=== PATIENT | female | born 1950 | race Native Hawaiian/Other Pacific Islander ===

== ENCOUNTER → 2022-01-17 13:21 | Outpatient (CLI) | payer OTHER, SELFPAY ==
--- NOTE | 2022-01-18 14:26 | PM.TREADMILL ---
Cardiac Stress Test Report Referral & Results Date Patient Seen: 01/18/22 Time Patient Seen: 14:27 Requesting provider: Trev Dixon Indication: Dyspnea with exertion Rest ECG: Unremarkable Procedure Note: Today following both written and verbal informed consent the patient was exercised according to a standard Mahin protocol patient went for a total of 5 minutes 15 seconds achieving a maximum heart rate of 132 maximum systolic blood pressure of 184. This is approximately 7.0 METS. Exercise was terminated at this point because of targets were met and patient unable to continue Patient was also given Cardiolite through a previously started Hep-Lock IV by the diagnostic imaging staff approximately 1 minute prior to the cessation of exercise. There are no ST-T segment changes identified Normal heart rate and blood pressure response to exercise Function aerobic impairment rates about-10% on the sedentary scale Patient's oxygen saturation was 95% at peak exercise on room air Impression: Patient without evidence of ischemia based on ECG criteria. Please see perfusion imaging report as well. No evidence of primary pulmonary disease either based on oxygen saturation with exercise or clinical picture while exercising Please note: Actual ECG tracings can be found in the PACS system.
--- NOTE | 2022-01-18 18:22 | DI.NM.S_ITS ---
DATE OF SERVICE: 01/17/2022 PROCEDURE PERFORMED: Exercise treadmill stress and rest myocardial perfusion study with gating to assess ejection fraction and regional wall motion. ORDERING PROVIDER: Dr. Trev Dixon. INDICATIONS: The patient is a morbidly obese 71-year-old hypertensive, hyperlipidemic female with exertional dyspnea. CARDIAC STRESS: The patient was able to exercise for a total of 5 minutes, 15 seconds on a standard Mahin protocol, suggesting mildly reduced exercise capacity with an YONATHAN of +5%. She had a normal heart rate and blood pressure response to exercise, achieving a maximum heart rate of 132 BPM (88% of her predicted maximum). She had no apparent chest discomfort and her oxygen saturation apparently remained normal. Her resting ECG shows normal ST segments and there are no significant ST-segment shifts or arrhythmias with stress. At 4 minutes, 12 seconds of exercise at a heart rate of 126 BPM, 25.5 millicuries of technetium-99m Myoview was injected and she was imaged 10 minutes later using a gated SPECT acquisition protocol. The day prior, she was injected with 26.0 millicuries of technetium-99m Myoview while at rest and was imaged 20 minutes later, again using a gated SPECT acquisition protocol. FINDINGS: 1. Raw data: There are marked breast shadows producing significant attenuation across the cardiac image. Lung/heart ratio is normal at 0.37 with a normal TID ratio of 1.06. 2. Quantitated gated SPECT: Post-stress ejection fraction is estimated at 76% without any focal wall motion abnormality and specifically the distal anterior apical wall appears to have normal contractility. The resting ejection fraction is estimated at 78% with a similar contraction pattern and a normal resting end-diastolic volume of 81 mL. 3. Myocardial perfusion imaging: Post-stress supine images reveal a fairly normal myocardial perfusion study except for a very subtle defect in the very distal anteroseptal segment that likely reflects breast attenuation artifact although remains persistent on the prone images. The resting images are of somewhat reduced quality but show a similar perfusion pattern without any clear evidence of improvement. IMPRESSION: 1. Probable normal myocardial perfusion study. 2. Small, subtle, fixed perfusion defect in the distal anteroseptum and apex that likely reflects breast attenuation artifact. While a previous nontransmural infarction cannot be entirely excluded, given the normal contractility in this area, this most likely reflects breast attenuation artifact. There is no evidence for any myocardial ischemia. 3. Normal left ventricular systolic function without any focal wall motion abnormality. 4. Mildly reduced exercise capacity without angina or ECG evidence of ischemia. Bre Jon - [facility]/selam/jennifer doc#: [id number]/job#: [id number] dd: 01/18/2022 16:47:00 dt: 01/18/2022 17:41:00 DICTATING /COPIES TO: Sahil Mata MD; Trev Dixon, MAGY MNE: PREET;
== END ==
PROVIDERS: PCP Family Medicine; Referring Provider Family Medicine; Visit Provider Family Medicine
DX: E78.00 Pure hypercholesterolemia, unspecified (principal); I10 Essential (primary) hypertension; R06.02 Shortness of breath; R06.00 Dyspnea, unspecified
CPT/HCPCS: 78452; 93016; 93017; 93018; A9502

== ENCOUNTER → 2022-02-01 06:59 | Outpatient (CLI) | payer OTHER, SELFPAY ==
[2022-02-01 08:09] LABS: Add Manual Diff / Slide Review NO; Basophils Absolute Auto 0 /uL (0-100); Eosinophils Absolute Auto 200 /uL (0-450); Eosinophils Percent Auto 5.2 % (2-4); Hematocrit 39.8 % (36-46); Hemoglobin 13.5 g/dL (12.0-16.0); Lymphocytes Absolute Auto 1800 /uL (1100-4500); Lymphocytes Percent Auto 48.6 % (25-40); Mean Corpuscular HGB Conc 33.9 % (30-36); Mean Corpuscular Volume 88.4 fL (80-100); Monocytes Absolute Auto 400 /uL (0-900); Monocytes Percent Auto 10.6 % (3-14); Neutrophils Absolute Auto 1300 /uL (1500-7000); Neutrophils Percent Auto 34.6 % (50-75); Platelet Count 207 X10^3/uL (150-400); Red Cell Distribution Width 13.9 % (11.6-14.8); White Blood Cell Count 3.7 X10^3/uL (4.5-11.0)
[2022-02-01 08:31] LABS: Alanine Aminotransferase 22 IU/L (<35); Albumin 3.8 g/dL (3.5-5.0); Albumin Globulin Ratio 1.3 (1.0-2.8); Alkaline Phosphatase 61 U/L (38-126); Aspartate Aminotransferase 28 IU/L (14-36); BUN Creatinine Ratio 16.2 (6-22); Bilirubin Total 0.6 mg/dL (0.2-1.3); Blood Urea Nitrogen 16 mg/dL (7-17); Carbon Dioxide 27 mmol/L (22-32); Chloride 105 mmol/L (98-107); Cholesterol 214 mg/dL (140-199); Estimated Glomerular Filt Rate > 60 mL/min (>60); Globulin 2.9 g/dL (1.7-4.1); Glucose 89 mg/dL (80-110); HDL Cholesterol 61 mg/dL (40-60); HEMOLYSIS < 15 (0-50); LDL Cholesterol Calculated 133 mg/dL (<100); Potassium 4.5 mmol/L (3.4-5.1); Sodium 137 mmol/L (137-145); Total Protein 6.7 g/dL (6.3-8.2); Triglycerides 101 mg/dL (35-150)
== END ==
PROVIDERS: PCP Family Medicine; Referring Provider Family Medicine; Visit Provider Family Medicine
DX: D64.9 Anemia, unspecified (principal); E78.00 Pure hypercholesterolemia, unspecified; I10 Essential (primary) hypertension
CPT/HCPCS: 36415; 80053; 80061; 85025

== ENCOUNTER → 2022-07-20 08:18 | Outpatient (CLI) | payer OTHER, SELFPAY ==
[2022-07-20 09:17] LABS: Add Manual Diff / Slide Review NO; Basophils Absolute Auto 0 /uL (0-100); Basophils Percent Auto 0.9 % (0-2); Eosinophils Absolute Auto 200 /uL (0-450); Eosinophils Percent Auto 5.5 % (2-4); Hematocrit 39.5 % (36-46); Hemoglobin 13.3 g/dL (12.0-16.0); Lymphocytes Absolute Auto 1600 /uL (1100-4500); Lymphocytes Percent Auto 43.3 % (25-40); Mean Corpuscular HGB Conc 33.6 % (30-36); Mean Corpuscular Hemoglobin 29.5 PG (26-34); Mean Corpuscular Volume 87.9 fL (80-100); Monocytes Absolute Auto 500 /uL (0-900); Monocytes Percent Auto 12.1 % (3-14); Neutrophils Absolute Auto 1500 /uL (1500-7000); Neutrophils Percent Auto 38.2 % (50-75); Platelet Count 208 X10^3/uL (150-400); Red Cell Distribution Width 14.2 % (11.6-14.8); White Blood Cell Count 3.8 X10^3/uL (4.5-11.0)
[2022-07-20 09:36] LABS: Cholesterol 212 mg/dL (140-199); HDL Cholesterol 60 mg/dL (40-60); LDL Cholesterol Calculated 131 mg/dL (<100); Triglycerides 105 mg/dL (35-150)
== END ==
PROVIDERS: PCP Family Medicine; Referring Provider Family Medicine; Visit Provider Family Medicine
DX: D64.9 Anemia, unspecified (principal); E78.00 Pure hypercholesterolemia, unspecified; I10 Essential (primary) hypertension
CPT/HCPCS: 36415; 80061; 85025

== ENCOUNTER → 2023-07-26 08:36 | Outpatient (CLI) | payer OTHER, MEDICARE, SELFPAY ==
[2023-07-26 09:14] LABS: Add Manual Diff / Slide Review NO; Basophils Absolute Auto 0 /uL (0-100); Eosinophils Absolute Auto 100 /uL (0-450); Eosinophils Percent Auto 3.9 % (2-4); Hematocrit 41.4 % (36-46); Hemoglobin 13.9 g/dL (12.0-16.0); Lymphocytes Absolute Auto 1600 /uL (1100-4500); Lymphocytes Percent Auto 41.9 % (25-40); Mean Corpuscular HGB Conc 33.6 % (30-36); Mean Corpuscular Hemoglobin 29.2 PG (26-34); Mean Corpuscular Volume 86.8 fL (80-100); Monocytes Absolute Auto 500 /uL (0-900); Monocytes Percent Auto 12.5 % (3-14); Neutrophils Absolute Auto 1500 /uL (1500-7000); Neutrophils Percent Auto 40.7 % (50-75); Platelet Count 250 X10^3/uL (150-400); Red Blood Cell Count 4.77 X10^6/uL (4.0-5.2); Red Cell Distribution Width 14.2 % (11.6-14.8); White Blood Cell Count 3.7 X10^3/uL (4.5-11.0)
[2023-07-26 09:27] LABS: Alanine Aminotransferase 20 IU/L (<35); Albumin Globulin Ratio 1.3 (1.0-2.8); Alkaline Phosphatase 59 U/L (38-126); Aspartate Aminotransferase 28 IU/L (14-36); BUN Creatinine Ratio 17.2 (6-22); Bilirubin Total 0.4 mg/dL (0.2-1.3); Blood Urea Nitrogen 15 mg/dL (7-17); Calcium 9.5 mg/dL (8.4-10.2); Carbon Dioxide 30 mmol/L (22-32); Chloride 104 mmol/L (98-107); Cholesterol 222 mg/dL (140-199); Estimated Glomerular Filt Rate > 60 mL/min (>60); Globulin 3.1 g/dL (1.7-4.1); Glucose 95 mg/dL (80-110); HDL Cholesterol 58 mg/dL (40-60); HEMOLYSIS < 15 (0-50); LDL Cholesterol Calculated 141 mg/dL (<100); Potassium 4.2 mmol/L (3.4-5.1); Sodium 138 mmol/L (137-145); Total Protein 7.1 g/dL (6.3-8.2); Triglycerides 115 mg/dL (35-150)
[2023-07-26 09:57] LABS: TSH w/ Reflex to FT4 4.49 uIU/mL (0.47-4.68)
== END ==
PROVIDERS: PCP Family Medicine; Referring Provider Family Medicine; Visit Provider Family Medicine
DX: I10 Essential (primary) hypertension (principal); K59.09 Other constipation; E78.00 Pure hypercholesterolemia, unspecified
CPT/HCPCS: 36415; 80053; 80061; 84443; 85025

== ENCOUNTER → 2024-03-23 08:32 | Outpatient (CLI) | payer OTHER, MEDICARE, SELFPAY ==
[2024-03-23 09:56] LABS: Add Manual Diff / Slide Review NO; Basophils Absolute Auto 0 /uL (0-100); Basophils Percent Auto 1.2 % (0-2); Eosinophils Absolute Auto 200 /uL (0-450); Eosinophils Percent Auto 5.1 % (2-4); Hematocrit 41.2 % (36-46); Hemoglobin 13.8 g/dL (12.0-16.0); Lymphocytes Absolute Auto 1300 /uL (1100-4500); Lymphocytes Percent Auto 39.8 % (25-40); Mean Corpuscular HGB Conc 33.4 % (30-36); Mean Corpuscular Hemoglobin 29.7 PG (26-34); Mean Corpuscular Volume 88.9 fL (80-100); Monocytes Absolute Auto 400 /uL (0-900); Monocytes Percent Auto 12.6 % (3-14); Neutrophils Absolute Auto 1400 /uL (1500-7000); Neutrophils Percent Auto 41.3 % (50-75); Platelet Count 218 X10^3/uL (150-400); Red Blood Cell Count 4.63 X10^6/uL (4.0-5.2); Red Cell Distribution Width 13.9 % (11.6-14.8); White Blood Cell Count 3.3 X10^3/uL (4.5-11.0)
[2024-03-23 10:01] LABS: Hemoglobin A1C% w Est Avg Glu 5.2 % (4.0-6.0)
[2024-03-23 10:24] LABS: Alanine Aminotransferase 17 IU/L (<35); Albumin Globulin Ratio 1.3 (1.0-2.8); Alkaline Phosphatase 59 U/L (38-126); Aspartate Aminotransferase 27 IU/L (14-36); BUN Creatinine Ratio 19.6 (6-22); Bilirubin Total 0.5 mg/dL (0.2-1.3); Blood Urea Nitrogen 18 mg/dL (7-17); Calcium 8.9 mg/dL (8.4-10.2); Carbon Dioxide 29 mmol/L (22-32); Chloride 106 mmol/L (98-107); Cholesterol 224 mg/dL (140-199); Estimated Glomerular Filt Rate > 60 mL/min (>60); Glucose 90 mg/dL (80-110); HDL Cholesterol 61 mg/dL (40-60); HEMOLYSIS < 15 (0-50); LDL Cholesterol Calculated 145 mg/dL (<100); Potassium 4.6 mmol/L (3.4-5.1); Sodium 139 mmol/L (137-145); Triglycerides 88 mg/dL (35-150)
[2024-03-23 10:53] LABS: TSH w/ Reflex to FT4 3.26 uIU/mL (0.47-4.68)
[2024-03-25 03:36] LABS: Apolipoprotein B 99 mg/dL (<90)
== END ==
PROVIDERS: PCP Family Medicine; Referring Provider Family Medicine; Visit Provider Family Medicine
DX: Z00.00 Encounter for general adult medical examination without abnormal findings (principal)
CPT/HCPCS: 36415; 80053; 80061; 82172; 83036; 83695; 84443; 85025

== ENCOUNTER → 2024-03-25 15:36 | Outpatient (CLI) | payer OTHER, MEDICARE, SELFPAY ==
[2024-03-25 16:31] LABS: C-Reactive Protein Quant < 0.5 mg/dL (<1.0)
[2024-03-25 16:44] LABS: Erythrocyte Sedimentation Rate 8 MM/HR (0-20)
== END ==
PROVIDERS: PCP Family Medicine; Referring Provider Family Medicine; Visit Provider Family Medicine
DX: G43.909 Migraine, unspecified, not intractable, without status migrainosus (principal); M54.50 Low back pain, unspecified; I73.00 Raynaud's syndrome without gangrene
CPT/HCPCS: 36415; 85651; 86038; 86140

== ENCOUNTER → 2025-03-04 06:56 | Outpatient (CLI) | payer OTHER, MEDICARE, SELFPAY ==
--- NOTE | 2025-03-04 06:59 | DI.US.S_ITS ---
PROCEDURE: US ABDOMEN LIMITED INDICATIONS: RIGHT UPPER QUADRANT PAIN TECHNIQUE: Real-time scanning was performed of the abdominal and retroperitoneal organs, with image documentation. COMPARISON: None. FINDINGS: Liver: Liver measures 13 cm. Increased in echogenicity. Gallbladder: Filled with gallstones. A larger stone measuring 1 cm. No wall thickening. No pericholecystic edema. Negative sonographic Ramsey's sign. Biliary ducts: Intrahepatic bile ducts are non-dilated. Extrahepatic bile duct caliber measures 8 mm. Normal is 6-7 mm or less in diameter, or 10 mm or less post-cholecystectomy. Pancreas: Visualized portions of the pancreas are sonographically normal. Tail is not well seen. Miscellaneous: No free abdominal fluid. IMPRESSION: 1. Increased hepatic echogenicity most consistent with hepatic steatosis. Other forms of hepatocellular disease could have similar appearance. 2. No acute cholecystitis demonstrated. Gallbladder is filled with gallstones. Dictated by: Alexis Martinez M.D. on 03/04/2025 at 10:50 Approved by: Alexis Martinez M.D. on 03/04/2025 at 10:53
[2025-03-04 08:16] LABS: Add Manual Diff / Slide Review NO; Basophils Absolute Auto 0 /uL (0-100); Basophils Percent Auto 0.8 % (0-2); Eosinophils Absolute Auto 300 /uL (0-450); Eosinophils Percent Auto 7.1 % (2-4); Hematocrit 41.7 % (36-46); Hemoglobin 13.9 g/dL (12.0-16.0); Lymphocytes Absolute Auto 1400 /uL (1100-4500); Lymphocytes Percent Auto 38.7 % (25-40); Mean Corpuscular HGB Conc 33.4 % (30-36); Mean Corpuscular Hemoglobin 29.6 PG (26-34); Mean Corpuscular Volume 88.9 fL (80-100); Monocytes Absolute Auto 500 /uL (0-900); Monocytes Percent Auto 13.2 % (3-14); Neutrophils Absolute Auto 1400 /uL (1500-7000); Neutrophils Percent Auto 40.2 % (50-75); Platelet Count 223 X10^3/uL (150-400); Red Blood Cell Count 4.69 X10^6/uL (4.0-5.2); Red Cell Distribution Width 14.3 % (11.6-14.8); White Blood Cell Count 3.6 X10^3/uL (4.5-11.0)
[2025-03-04 08:18] LABS: Hemoglobin A1C% w Est Avg Glu 5.4 % (4.0-6.0)
[2025-03-04 08:39] LABS: Alanine Aminotransferase 18 IU/L (<35); Albumin Globulin Ratio 1.5 (1.0-2.8); Alkaline Phosphatase 64 U/L (38-126); Aspartate Aminotransferase 27 IU/L (14-36); BUN Creatinine Ratio 20.4 (6-22); Bilirubin Total 0.5 mg/dL (0.2-1.3); Blood Urea Nitrogen 20 mg/dL (7-17); Calcium 9.3 mg/dL (8.4-10.2); Carbon Dioxide 27 mmol/L (22-32); Chloride 103 mmol/L (98-107); Cholesterol 228 mg/dL (140-199); Estimated Glomerular Filt Rate > 60 mL/min (>60); Globulin 2.6 g/dL (1.7-4.1); Glucose 81 mg/dL (70-99); HDL Cholesterol 63 mg/dL (40-60); HEMOLYSIS < 15 (0-50); LDL Cholesterol Calculated 151 mg/dL (<100); Lipase 76 U/L (23-300); Potassium 4.2 mmol/L (3.4-5.1); Sodium 138 mmol/L (137-145); Total Protein 6.6 g/dL (6.3-8.2); Triglycerides 71 mg/dL (35-150)
[2025-03-04 09:08] LABS: TSH w/ Reflex to FT4 4.61 uIU/mL (0.47-4.68)
== END ==
LOC: US 06:58
PROVIDERS: PCP Family Medicine; Referring Provider Family Medicine; Visit Provider Family Medicine
DX: K80.20 Calculus of gallbladder without cholecystitis without obstruction (principal); M54.50 Low back pain, unspecified; R10.11 Right upper quadrant pain; I10 Essential (primary) hypertension; E78.00 Pure hypercholesterolemia, unspecified; D64.9 Anemia, unspecified; Z13.1 Encounter for screening for diabetes mellitus
CPT/HCPCS: 36415; 76705; 80053; 80061; 83036; 83690; 84443; 85025; 86038

== ENCOUNTER → 2025-03-15 14:56 | Outpatient (CLI) | payer OTHER, MEDICARE, SELFPAY ==
--- NOTE | 2025-03-15 14:58 | DI.RAD.S_ITS ---
PROCEDURE: XR HIP W PEL IF DONE RT 2V INDICATIONS: right hip pain TECHNIQUE: AP pelvis with lateral view(s) of the right hip(s). COMPARISON: None. FINDINGS: Bones: There are no osseous abnormalities. SI and hip joints: Moderate right and mild left hip degenerative change appreciated. SI joints are normal. Severe L5-S1 degenerative disc and facet disease seen. Soft tissues: A 2.2 cm calcification right true pelvis appreciated. Other scattered smaller calcifications in the inferior pelvis noted IMPRESSION: Moderate right and mild left hip degeneration. Pelvic calcifications. While these are likely benign , the largest could represent a urinary bladder stone Dictated by: Myles Beltran M.D. on 03/16/2025 at 12:06 Approved by: Myles Beltran M.D. on 03/16/2025 at 12:08
== END ==
PROVIDERS: PCP Family Medicine; Referring Provider Family Medicine; Visit Provider Family Medicine
DX: M16.0 Bilateral primary osteoarthritis of hip (principal); M25.551 Pain in right hip; N94.89 Other specified conditions associated with female genital organs and menstrual cycle
CPT/HCPCS: 73502

== ENCOUNTER → 2025-07-27 14:53 | Outpatient (CLI) | payer OTHER, MEDICARE, SELFPAY ==
--- NOTE | 2025-07-27 14:54 | DI.RAD.S_ITS ---
PROCEDURE: XR DEXA AXIAL SKELETON INDICATIONS: preop maya COMPARISON: None. FINDINGS: Lumbar Spine: Bone mineral density 1.288 g/cm2, T score 2.2. Right Femoral Neck: Bone mineral density 0.896 g/cm2, T score 0.4. Right Hip: Bone mineral density 0.912 g/cm2, T score -0.2. Fracture Risk Calculation (when applicable): 10-year fracture risk of a major osteoporotic fracture 6.5 percent and of a hip fracture 0.4 percent. (T score greater or equal to -1.0 to: NORMAL) (T score from -1.1 to -2.4: OSTEOPENIA) (T score less than or equal to -2.5: OSTEOPOROSIS) IMPRESSION: Normal bone mineral density by WHO classification. Follow-up guidelines as follows: Osteoporosis: Consider a repeat DEXA and Vertebral Fracture Assessment (VFA) exam in 2 years or sooner if medically necessary, to reassess this patient's status. Osteopenia: Consider a repeat DEXA in 2-3 years to reassess this patient's status, or if there is a new clinical indication. Normal: Consider a repeat DEXA in 5 years or sooner, or if there is a new clinical indication. All treatment decisions require clinical judgment and consideration of individual patient factors, including patient preferences, comorbidities, previous drug use, risk factors not captured in the FRAX model (e.g., frailty, falls, vitamin D deficiency, increased bone turnover, interval significant decline in bone density ) and possible under- or over-estimation of fracture risk by FRAX. In addition, the NOF Guide recommends that FDA-approved medical therapies be considered in postmenopausal women and men age >= 50 years with a: * Hip or vertebral (clinical or morphometric) fracture * T-score of <=-2.5 at the spine or hip * Ten-year fracture probability by FRAX of >= 3% for hip fracture or >=20% for major osteoporotic fracture. Dictated by: Lanre Hebert M.D. on 07/27/2025 at 21:53 Approved by: Lanre Hebert M.D. on 07/27/2025 at 21:54
== END ==
LOC: RAD 14:54
PROVIDERS: PCP Family Medicine; Referring Provider Orthopaedic Surgery Adult Reconstructive Orthopaedic Surgery; Visit Provider Orthopaedic Surgery Adult Reconstructive Orthopaedic Surgery
DX: M81.0 Age-related osteoporosis without current pathological fracture (principal)
CPT/HCPCS: 77080